=== PATIENT | female | born 1965 | race Caucasian/White ===

== ENCOUNTER → 2022-05-13 | Emergency (ER) | payer MEDICAID ==
[~2022-05-13] VITALS: Ht 160 cm; Wt 61.2 kg
[~2022-05-13] MED LIST: ACETAMINOPHEN ES 500 MG TABLET ONE; ACETAMINOPHEN ES 500 MG TABLET PO ONE
[2022-05-13 15:13] VITALS: BP 134/75
--- NOTE | 2022-05-13 15:40 | NUR ---
Patient discharged to home in stable condition. Written and verbal after care instructions given. Patient verbalizes understanding of instruction.
== END | disposition home or self-care (01) ==
LOC: ER 15:10
DX: S00.33XA Contusion of nose, initial encounter (principal); W22.8XXA Striking against or struck by other objects, initial encounter; Y93.89 Activity, other specified; Y92.89 Other specified places as the place of occurrence of the external cause; Y99.8 Other external cause status